=== PATIENT | female | born 1935 | race African-American/Black ===

== ENCOUNTER 2018-10-01 21:22 | Inpatient (IN) | payer MEDICARE, MEDICAID ==
[2018-10-01 22:02] LABS: % BASOPHILS 0.2 % (0.0-2.0); % LYMPHOCYTES 28.2 % (20.0-50.0); % NEUTROPHILS 61.6 % (40.0-80.0); EOSINOPHILE ABSOLUTE 0.4 Th/cmm (0.1-0.4); HEMATOCRIT 41.2 % (41.0-60); HEMOGLOBIN 13.2 gm/dL (12-16); LYMPHOCYTE ABSOLUTE 2.4 Th/cmm (1.5-3.0); MEAN CELL VOLUME 89.6 fl (81-100); MEAN CORPUSCULAR HEMOGLOBIN 28.8 pg (27.0-31.0); MEAN CORPUSCULAR HGB CONC 32.2 pg (28.0-36.0); MEAN PLATELET VOLUME 12.4 fl; MONOCYTE ABSOLUTE 0.4 Th/cmm (0.3-1.0); NEUTROPHILE ABSOLUTE 5.3 Th/cmm (1.8-8.0); PLATELET COUNT 141 Th/cmm (150-400); RED BLOOD COUNT 4.59 Mil/cmm (3.80-5.20); RED CELL DISTRIBUTION WIDTH 15.6 % (11.5-20.0); WHITE BLOOD COUNT 8.5 Th/cmm (4.8-10.8)
[2018-10-01 22:17] LABS: ALBUMIN 3.4 gm/dL (3.7-5.3); ALKALINE PHOSPHATASE 80 U/L (34-104); ANION GAP 12.8 (7.0-16.0); BILIRUBIN,TOTAL 0.4 mg/dL (0.3-1.0); BUN - UREA NITROGEN 75 mg/dL (7-25); CARBON DIOXIDE 24.9 mEq/L (21.0-31.0); CHLORIDE 125 mEq/L (98-107); CREATININE - SERUM 2.4 mg/dL (0.6-1.2); GLUCOSE 326 mg/dL (70-105); POTASSIUM SERUM 3.7 mEq/L (3.5-5.1); SGOT 50 U/L (13-39); SGPT/ALT 99 U/L (7-52); TOTAL PROTEIN,SERUM 6.7 gm/dL (6.0-8.3)
[2018-10-01 22:39] LABS: PROTHROMBIN TIME (TEST) 75.4 SECONDS (9.5-11.5)
[2018-10-01 22:40] LABS: SODIUM SERUM 159 mEq/L (136-145)
[2018-10-01 22:51] LABS: URINE SOURCE CATH
[2018-10-01] MEDS ORDERED: INSULIN HUMAN REGULAR 100 UNITS/ML UNIT SUBQ ONE (23:00)
[2018-10-01 23:02] LABS: URINE BILIRUBIN NEGATIVE (NEGATIVE); URINE BLOOD MODERATE (NEGATIVE); URINE CLARITY CLOUDY (CLEAR); URINE COLOR YELLOW; URINE GLUCOSE (UA) NEGATIVE (NEGATIVE); URINE KETONE NEGATIVE (NEGATIVE); URINE LEUKOCYTE ESTERASE LARGE (NEGATIVE); URINE MICROSCOPIC INDICATED? YES; URINE NITRATE POSITIVE (NEGATIVE); URINE PH 5.5 (4.6 - 8.0); URINE PROTEIN 100 mg/dL (NEGATIVE); URINE UROBILINOGEN 0.2 E.U./dL (0.2 - 1.0)
[2018-10-01] MEDS ORDERED: INSULIN HUMAN REGULAR 100 UNITS/ML UNIT ONE (23:03)
[2018-10-01 23:04] LABS: URINE BACTERIA MANY /hpf (NONE SEEN); URINE EPITHELIAL CELLS MODERATE /lpf (FEW); URINE WBC >100 /hpf (0-5)
[2018-10-01] MEDS ORDERED: cefTRIAXone 1 GM in Sodium Chloride 0.9% 50 ML IV ONE (23:04)
--- NOTE | 2018-10-01 23:56 | ED Physician Chart ---
ED Chief Complaint/HPI - Patient Information Date Seen:: 10/01/18 Time Seen:: 23:52 Chief Complaint:: generalized weakness History of Present Illness:: 83 yr old female with generalized weakness diabetes elevated coags ams Allergies:: Allergies Allergy/AdvReac Type Severity Reaction Status Date / Time No Known Allergies Allergy Verified 10/01/18 21:25 Vitals:: Vital Signs - 8 hr 10/01/18 10/01/18 10/01/18 21:25 22:45 23:40 Temp 97.9 F 98.4 F HR 95 97 96 RR 19 15 13 BP 91/40 116/57 132/74 O2 Sat % 99 98 98 ED Review of Systems - Review of Systems General/Constitutional: No fever Skin: No skin lesions Head: No headache Eyes: No loss of vision ENT: No earache Neck: No neck pain, No swelling Cardio Vascular: No chest pain Pulmonary: No SOB GI: No vomiting Endocrine: No polyuria Family Medical History - Family Member Daughter Living Status: Still Living ED Labs/Radiology/EKG Results - Lab Results Results: Laboratory Tests 10/01/18 10/01/18 10/01/18 21:50 21:50 21:50 WBC 8.5 RBC 4.59 Hgb 13.2 Hct 41.2 MCV 89.6 MCH 28.8 MCHC Differential 32.2 RDW 15.6 Plt Count 141 L MPV 12.4 Neutrophils % 61.6 Lymphocytes % 28.2 Monocytes % 5.0 Eosinophils % 5.0 Basophils % 0.2 PT 75.4 H* INR 8.00 H* PTT (Actin FS) 57.5 H Sodium 159 H* Potassium 3.7 Chloride 125 H Carbon Dioxide 24.9 Anion Gap 12.8 BUN 75 H Creatinine 2.4 H Est GFR ( Amer) TNP Est GFR (Non-Af Amer) TNP BUN/Creatinine Ratio 31.3 Glucose 326 H POC Glucose Calcium 9.0 Total Bilirubin 0.4 AST 50 H ALT 99 H Alkaline Phosphatase 80 Total Protein 6.7 Albumin 3.4 L Globulin 3.3 Albumin/Globulin Ratio 1.0 Urine Source Urine Color Urine Clarity Urine pH Ur Specific [place] Urine Protein Urine Glucose (UA) Urine Ketones Urine Blood Urine Nitrate Urine Bilirubin Urine Urobilinogen Ur Leukocyte Esterase Urine RBC Urine WBC Ur Epithelial Cells Urine Bacteria 10/01/18 10/01/18 22:40 23:49 WBC RBC Hgb Hct MCV MCH MCHC Differential RDW Plt Count MPV Neutrophils % Lymphocytes % Monocytes % Eosinophils % Basophils % PT INR PTT (Actin FS) Sodium Potassium Chloride Carbon Dioxide Anion Gap BUN Creatinine Est GFR ( Amer) Est GFR (Non-Af Amer) BUN/Creatinine Ratio Glucose POC Glucose 304 H Calcium Total Bilirubin AST ALT Alkaline Phosphatase Total Protein Albumin Globulin Albumin/Globulin Ratio Urine Source CATH Urine Color YELLOW Urine Clarity CLOUDY H Urine pH 5.5 Ur Specific [place] 1.020 Urine Protein 100 H Urine Glucose (UA) NEGATIVE Urine Ketones NEGATIVE Urine Blood MODERATE H Urine Nitrate POSITIVE H Urine Bilirubin NEGATIVE Urine Urobilinogen 0.2 Ur Leukocyte Esterase LARGE H Urine RBC 2-5 Urine WBC >100 H Ur Epithelial Cells MODERATE Urine Bacteria MANY H ED Septic Shock - . Is Septic Shock (SBP<90, OR Lactate>4 mmol\L) present?: No - <6hrs of presentation: Vital Signs: Vital Signs - 8 hr 10/01/18 10/01/18 10/01/18 21:25 22:45 23:40 Temp 97.9 F 98.4 F HR 95 97 96 RR 19 15 13 BP 91/40 116/57 132/74 O2 Sat % 99 98 98 Assessment of Lungs: Lung CTA bilateral Assessment of Heart: RRR EKG Interpretation: NSR Capillary refill evaluation: Capillary refill > 2 secs Skin Exam: Dry, Good Turgur, Poor Turgor, Pallor
[2018-10-02] MEDS: Dextrose 5% 1,000 ML IV SCH ×2 (00:42→15:42)
[2018-10-02 05:32] VITALS: BP 116/63
[2018-10-02] MEDS ORDERED: INSULIN HUMAN REGULAR 100 UNITS/ML UNIT SUBQ SCH (07:30)
--- NOTE | 2018-10-02 08:39 | Diagnostic Imaging Report ---
CHEST X-RAY: AP view INDICATION: pain COMPARISON: None FINDINGS: There is no focal consolidation or pleural effusions cardiomegaly is noted with atherosclerosis. Degenerative changes of the spine are noted. IMPRESSION: No focal consolidation identified. Cardiomegaly and atherosclerotic vascular disease.
[2018-10-02 08:43] LABS: % EOSINOPHILS 4.3 % (0.0-5.0); % LYMPHOCYTES 30.7 % (20.0-50.0); % MONOCYTES 11.8 % (2.0-10.0); % NEUTROPHILS 52.2 % (40.0-80.0); BASOPHILE ABSOLUTE 0.1 Th/cumm (0-0.2); EOSINOPHILE ABSOLUTE 0.5 Th/cmm (0.1-0.4); HEMATOCRIT 43.4 % (41.0-60); LYMPHOCYTE ABSOLUTE 3.5 Th/cmm (1.5-3.0); MEAN CELL VOLUME 91.7 fl (81-100); MEAN CORPUSCULAR HEMOGLOBIN 29.5 pg (27.0-31.0); MEAN CORPUSCULAR HGB CONC 32.2 pg (28.0-36.0); MEAN PLATELET VOLUME 12.2 fl; MONOCYTE ABSOLUTE 1.3 Th/cmm (0.3-1.0); NEUTROPHILE ABSOLUTE 5.9 Th/cmm (1.8-8.0); PLATELET COUNT 121 Th/cmm (150-400); RED BLOOD COUNT 4.73 Mil/cmm (3.80-5.20); RED CELL DISTRIBUTION WIDTH 15.9 % (11.5-20.0)
[2018-10-02 08:44] LABS: WHITE BLOOD COUNT 11.3 Th/cmm (4.8-10.8)
[2018-10-02] MEDS ORDERED: INSULIN LISPRO SLIDING SCALE 100 UNITS/ML UNIT SUBQ SCH (08:44)
--- NOTE | 2018-10-02 08:48 | Diagnostic Imaging Report ---
Head CT without intravenous contrast Indication: Altered level of consciousness Comparison: None Technique: Axial images were obtained from the vertex to the skull base without IV contrast. Coronal reconstructions were made. Total DLP: 791, [id number] FINDINGS: Images of the brain obtained without contrast demonstrate no evidence of an acute hemorrhage. There is diffuse atrophy. Diffuse white matter disease is noted. The ventricles and basal cisterns are patent. No mass effect or midline shift. No evidence of a skull fracture or focal soft tissue swelling. There is almost complete opacification of the left maxillary sinus with calcifications. There is also almost complete opacification right sphenoid sinus. Diffuse atherosclerosis is noted. IMPRESSION: No evidence of acute intracranial hemorrhage. Atrophy. Diffuse supratentorial white matter disease which is nonspecific and may be due to chronic microvessel ischemia.. Left maxillary and right sphenoid sinusitis, chronic please correlate clinically. Atherosclerotic vascular disease.
[2018-10-02 08:56] LABS: ALBUMIN 3.4 gm/dL (3.7-5.3); ALKALINE PHOSPHATASE 76 U/L (34-104); ANION GAP 14.1 (7.0-16.0); BILIRUBIN,TOTAL 0.5 mg/dL (0.3-1.0); BUN - UREA NITROGEN 67 mg/dL (7-25); CALCIUM SERUM 9.1 mg/dL (8.6-10.3); CARBON DIOXIDE 22.9 mEq/L (21.0-31.0); CHLORIDE 125 mEq/L (98-107); CREATININE - SERUM 2.1 mg/dL (0.6-1.2); SGOT 47 U/L (13-39); SGPT/ALT 92 U/L (7-52); TOTAL PROTEIN,SERUM 6.9 gm/dL (6.0-8.3)
[2018-10-02] MEDS ORDERED: Non-Formulary Item 1 EA (Multivitamin [Multivitamins] 1 CAP) PO SCH (09:00)
[2018-10-02] MEDS ORDERED: AMINO ACIDS PO SCH (09:00)
[2018-10-02] MEDS ORDERED: PROTEIN HYDROLYS PO SCH (09:00)
[2018-10-02 09:07] LABS: GLUCOSE 160 mg/dL (70-105); SODIUM SERUM 158 mEq/L (136-145)
--- NOTE | 2018-10-02 09:08 | History and Physical ---
History of Present Illness - HPI Chief Complaint: Weakness and confusion. HPI: This is a patient that I follow in an SNF, I received a call and nurse stated that patient has been lethargy, eating less than normal. with some confusion. Patient was send to ER for evaluation. During ER evaluation was found UTI, and INR of 8. Vital Signs: Last Vital Signs Temp 97.7 F 10/02/18 04:16 Pulse 95 10/02/18 04:16 Resp 18 10/02/18 04:16 BP 116/63 10/02/18 05:31 Pulse Ox 100 10/02/18 04:16 Past Medical History Cardiovascular: Report: CAD, HTN Pulmonary: Report: COPD CHILDREN'S AIDE: Report: CVA, Dementia GI: Report: No Pertinent Hx Psych: Report: No Pertinent Hx Musculoskeletal: Report: Muscle Atrophy, Weakness, Other (Funtional quadriplegic.) Rheumatologic: Report: No pertinent Hx Infectious Disease: Report: No Pertinent Hx Renal/: Report: Chronic Renal Insuff Endocrine: Report: Diabetes Dermatology: Report: Other (Decubit ulcer stage II) Family Medical History - Family Member Daughter History Unknown: Yes Ethnicity: Non- Living Status: Still Living Other Medical History: Patient unable to give information due to condition and confusion. Social History Smoke: No Alcohol: None Drugs: None Lives: Assisted Domestic Violence: Negative - Medications Home Medications: Home Medication Medication Instructions Recorded Type Albuterol Sulfate [Proair 1 puff IH QID PRN 10/01/18 History Respiclick] Albuterol/Ipratropium Neb [Duoneb 3 ml HHN Q6HR 10/01/18 History Neb] Amino Acids/Protein Hydrolys 30 ml PO BID 10/01/18 History [Proteinex Liquid] Ascorbic Acid [Vitamin C] 500 mg PO DAILY 10/01/18 History Aspirin 81 mg PO DAILY 10/01/18 History Atorvastatin Calcium [Lipitor] 20 mg PO HS 10/01/18 History Cyanocobalamin [Vitamin B12] 1,000 mcg PO DAILY 10/01/18 History Docusate Sodium [Dulcolax Stool 100 mg PO BID 10/01/18 History Softener] Ferrous Sulfate [Feosol*] 1 tab PO BID 10/01/18 History Furosemide [Lasix] 20 mg PO DAILY 10/01/18 History Insulin Glargine [Lantus Insulin] 5 units SUBQ QAM 10/01/18 History Insulin Human Regular [NovoLIN R] See Protocol SUBQ ACHS 10/01/18 History Losartan Potassium 100 mg PO DAILY 10/01/18 History Memantine [Namenda] 5 mg PO DAILY 10/01/18 History Multivitamin [Multivitamins] 1 cap PO DAILY 10/01/18 History Warfarin Sodium [Coumadin*] 5 mg PO DAILY 10/01/18 History Warfarin Sodium [Coumadin*] 7 mg PO DAILY 10/01/18 History - Allergies Allergies/Adverse Reactions: Allergies Allergy/AdvReac Type Severity Reaction Status Date / Time No Known Allergies Allergy Verified 10/01/18 21:25 Review of Systems - Review of Systems Constitutional: Report: Weakness Eyes: Report: No Significant ENT: Report: No Significant Respiratory: Report: No Significant Cardiovascular: Report: No Significant Gastrointestinal: Report: No Significant Genitourinary: Report: No Significant Musculoskeletal: Report: No Significant Skin: Report: No Significant Neurological: Report: No Significant Physical Exam - Physical Exam HEENT: Report: Ears Nose Throat within normal limits Neck: Report: Within normal limits Cardiovascular Systems: Report: Regular, Rate and Rhythm Respiratory: Report: Breath Sounds are within normal limits Abdomen: Report: Non-tender to palpation Back: Report: Inspection of back is within normal limits. Extremities: Report: Non-tender to palpation., Other (Non ambulatory) Skin: Report: A wound was noted, Other (Decubit ulcer stage II) Neuro/Psych: Report: Disoriented to name time or place, Depressed affect - Lab Results All Lab Results last 24 hours: Laboratory Results - last 24 hr 10/01/18 10/01/18 10/01/18 21:50 21:50 21:50 WBC 8.5 RBC 4.59 Hgb 13.2 Hct 41.2 MCV 89.6 MCH 28.8 MCHC Differential 32.2 RDW 15.6 Plt Count 141 L MPV 12.4 Neutrophils % 61.6 Lymphocytes % 28.2 Monocytes % 5.0 Eosinophils % 5.0 Basophils % 0.2 PT 75.4 H* INR 8.00 H* PTT (Actin FS) 57.5 H Sodium 159 H* Potassium 3.7 Chloride 125 H Carbon Dioxide 24.9 Anion Gap 12.8 BUN 75 H Creatinine 2.4 H Est GFR ( Amer) TNP Est GFR (Non-Af Amer) TNP BUN/Creatinine Ratio 31.3 Glucose 326 H POC Glucose Calcium 9.0 Total Bilirubin 0.4 AST 50 H ALT 99 H Alkaline Phosphatase 80 Total Protein 6.7 Albumin 3.4 L Globulin 3.3 Albumin/Globulin Ratio 1.0 Urine Source Urine Color Urine Clarity Urine pH Ur Specific [place] Urine Protein Urine Glucose (UA) Urine Ketones Urine Blood Urine Nitrate Urine Bilirubin Urine Urobilinogen Ur Leukocyte Esterase Urine RBC Urine WBC Ur Epithelial Cells Urine Bacteria 10/01/18 10/01/18 10/02/18 22:40 23:49 06:21 WBC RBC Hgb Hct MCV MCH MCHC Differential RDW Plt Count MPV Neutrophils % Lymphocytes % Monocytes % Eosinophils % Basophils % PT INR PTT (Actin FS) Sodium Potassium Chloride Carbon Dioxide Anion Gap BUN Creatinine Est GFR ( Amer) Est GFR (Non-Af Amer) BUN/Creatinine Ratio Glucose POC Glucose 304 H 184 H Calcium Total Bilirubin AST ALT Alkaline Phosphatase Total Protein Albumin Globulin Albumin/Globulin Ratio Urine Source CATH Urine Color YELLOW Urine Clarity CLOUDY H Urine pH 5.5 Ur Specific [place] 1.020 Urine Protein 100 H Urine Glucose (UA) NEGATIVE Urine Ketones NEGATIVE Urine Blood MODERATE H Urine Nitrate POSITIVE H Urine Bilirubin NEGATIVE Urine Urobilinogen 0.2 Ur Leukocyte Esterase LARGE H Urine RBC 2-5 Urine WBC >100 H Ur Epithelial Cells MODERATE Urine Bacteria MANY H 10/02/18 08:30 WBC 11.3 H D RBC 4.73 Hgb 14.0 Hct 43.4 MCV 91.7 MCH 29.5 MCHC Differential 32.2 RDW 15.9 Plt Count 121 L MPV 12.2 Neutrophils % 52.2 Lymphocytes % 30.7 Monocytes % 11.8 H Eosinophils % 4.3 Basophils % 1.0 PT INR PTT (Actin FS) Sodium Potassium Chloride Carbon Dioxide Anion Gap BUN Creatinine Est GFR ( Amer) Est GFR (Non-Af Amer) BUN/Creatinine Ratio Glucose POC Glucose Calcium Total Bilirubin AST ALT Alkaline Phosphatase Total Protein Albumin Globulin Albumin/Globulin Ratio Urine Source Urine Color Urine Clarity Urine pH Ur Specific [place] Urine Protein Urine Glucose (UA) Urine Ketones Urine Blood Urine Nitrate Urine Bilirubin Urine Urobilinogen Ur Leukocyte Esterase Urine RBC Urine WBC Ur Epithelial Cells Urine Bacteria - Assessment Assessment: Patient is awake, alert, calm, confused, not oriented, not following verbal commands. DX: UTI, Hypernatremia, Elevated INR, DM, HTN, S/P CVA, Functional quadriplegia, Dementia. - Plan Plan: Patient is in IV D5, IV AB, continue with SNF meds, Insulin, Wound care. will continue to monitor.
[2018-10-02] MEDS ORDERED: Dextrose 50% 50 mL Abboject IVP PRN (09:11)
[2018-10-02] MEDS ORDERED: GLUCAGON HCl 1 MG KIT IM PRN (09:11)
[2018-10-02] MEDS: Insulin Glargine 100 units/ml 10ml Vial SUBQ SCH (09:31)
[2018-10-02] MEDS: Ferrous Sulfate 325 MG TAB PO SCH ×2 (09:35→18:00)
[2018-10-02] MEDS: INSULIN LISPRO SLIDING SCALE 100 UNITS/ML UNIT SUBQ SCH ×2 (12:19→17:17)
[2018-10-02] MEDS: Albuterol/Ipratropium Neb 3 ML AERS HHN SCH ×2 (14:24→19:23)
[2018-10-02 14:49] LABS: PROTHROMBIN TIME (TEST) 76.3 SECONDS (9.5-11.5)
[2018-10-02 14:50] LABS: INR 8.11 (0.5-1.4)
[2018-10-02] MEDS: Atorvastatin Calcium 10 MG TAB PO SCH (20:23)
[2018-10-02] MEDS: cefTRIAXone 1 GM in Sodium Chloride 0.9% 50 ML IV SCH (20:25)
[2018-10-02] MEDS ORDERED: Non-Formulary Item 1 EA (Atorvastatin Calcium [Lipitor] 20 MG) PO SCH (21:00)
[2018-10-02] MEDS ORDERED: INSULIN LISPRO 100 UNIT/ML VIAL SUBQ ONE (21:45)
[2018-10-03] MEDS: INSULIN LISPRO SLIDING SCALE 100 UNITS/ML UNIT SUBQ SCH ×4 (00:24→18:53)
[2018-10-03] MEDS: Albuterol/Ipratropium Neb 3 ML AERS HHN SCH ×4 (01:09→19:09)
[2018-10-03 06:36] LABS: ALBUMIN 3.3 gm/dL (3.7-5.3); ALKALINE PHOSPHATASE 68 U/L (34-104); ANION GAP 14.8 (7.0-16.0); BILIRUBIN,TOTAL 0.6 mg/dL (0.3-1.0); BUN - UREA NITROGEN 50 mg/dL (7-25); CALCIUM SERUM 8.6 mg/dL (8.6-10.3); CARBON DIOXIDE 21.8 mEq/L (21.0-31.0); CHLORIDE 120 mEq/L (98-107); CREATININE - SERUM 1.7 mg/dL (0.6-1.2); GLUCOSE 118 mg/dL (70-105); POTASSIUM SERUM 3.6 mEq/L (3.5-5.1); SGOT 33 U/L (13-39); SGPT/ALT 74 U/L (7-52); SODIUM SERUM 153 mEq/L (136-145); TOTAL PROTEIN,SERUM 6.5 gm/dL (6.0-8.3)
[2018-10-03 07:22] LABS: % BASOPHILS 0.9 % (0.0-2.0); % EOSINOPHILS 3.5 % (0.0-5.0); % LYMPHOCYTES 29.2 % (20.0-50.0); % MONOCYTES 9.3 % (2.0-10.0); % NEUTROPHILS 57.1 % (40.0-80.0); BASOPHILE ABSOLUTE 0.1 Th/cumm (0-0.2); EOSINOPHILE ABSOLUTE 0.4 Th/cmm (0.1-0.4); HEMATOCRIT 39.9 % (41.0-60); HEMOGLOBIN 12.8 gm/dL (12-16); LYMPHOCYTE ABSOLUTE 2.9 Th/cmm (1.5-3.0); MEAN CELL VOLUME 90.1 fl (81-100); MEAN CORPUSCULAR HEMOGLOBIN 28.9 pg (27.0-31.0); MEAN PLATELET VOLUME 10.7 fl; MONOCYTE ABSOLUTE 0.9 Th/cmm (0.3-1.0); NEUTROPHILE ABSOLUTE 5.8 Th/cmm (1.8-8.0); PLATELET COUNT 91 Th/cmm (150-400); RED BLOOD COUNT 4.42 Mil/cmm (3.80-5.20); RED CELL DISTRIBUTION WIDTH 15.3 % (11.5-20.0); WHITE BLOOD COUNT 10.1 Th/cmm (4.8-10.8)
[2018-10-03] MEDS: Multivitamin Tab PO SCH (08:56)
[2018-10-03] MEDS: Ferrous Sulfate 325 MG TAB PO SCH ×2 (08:56→18:52)
[2018-10-03] MEDS: Insulin Glargine 100 units/ml 10ml Vial SUBQ SCH (09:00)
--- NOTE | 2018-10-03 09:10 | General Progress Note ---
Subjective - Review of Systems Service Date: 10/03/18 Subjective: Patient non verbal Objective - Results Result Diagrams: 10/04/18 06:35 10/04/18 06:35 Recent Labs: Laboratory Last Values WBC 10.1 Th/cmm (4.8-10.8) 10/03/18 05:51 RBC 4.42 Mil/cmm (3.80-5.20) 10/03/18 05:51 Hgb 12.8 gm/dL (12-16) 10/03/18 05:51 Hct 39.9 % (41.0-60) L 10/03/18 05:51 MCV 90.1 fl (81-100) 10/03/18 05:51 MCH 28.9 pg (27.0-31.0) 10/03/18 05:51 MCHC Differential 32.0 pg (28.0-36.0) 10/03/18 05:51 RDW 15.3 % (11.5-20.0) 10/03/18 05:51 Plt Count 91 Th/cmm (150-400) L 10/03/18 05:51 MPV 10.7 fl 10/03/18 05:51 Neutrophils % 57.1 % (40.0-80.0) 10/03/18 05:51 Lymphocytes % 29.2 % (20.0-50.0) 10/03/18 05:51 Monocytes % 9.3 % (2.0-10.0) 10/03/18 05:51 Eosinophils % 3.5 % (0.0-5.0) 10/03/18 05:51 Basophils % 0.9 % (0.0-2.0) 10/03/18 05:51 PT 76.3 SECONDS (9.5-11.5) H* 10/02/18 14:08 INR 8.11 (0.5-1.4) H* 10/02/18 14:08 PTT (Actin FS) 57.5 SECONDS (26.0-38.0) H 10/01/18 21:50 Sodium 153 mEq/L (136-145) H 10/03/18 05:51 Potassium 3.6 mEq/L (3.5-5.1) 10/03/18 05:51 Chloride 120 mEq/L (98-107) H 10/03/18 05:51 Carbon Dioxide 21.8 mEq/L (21.0-31.0) 10/03/18 05:51 Anion Gap 14.8 (7.0-16.0) 10/03/18 05:51 BUN 50 mg/dL (7-25) H 10/03/18 05:51 Creatinine 1.7 mg/dL (0.6-1.2) H 10/03/18 05:51 Est GFR ( Amer) TNP 10/03/18 05:51 Est GFR (Non-Af Amer) TNP 10/03/18 05:51 BUN/Creatinine Ratio 29.4 10/03/18 05:51 Glucose 118 mg/dL (70-105) H 10/03/18 05:51 POC Glucose 91 MG/DL (70 - 105) 10/03/18 05:22 Calcium 8.6 mg/dL (8.6-10.3) 10/03/18 05:51 Total Bilirubin 0.6 mg/dL (0.3-1.0) 10/03/18 05:51 AST 33 U/L (13-39) 10/03/18 05:51 ALT 74 U/L (7-52) H 10/03/18 05:51 Alkaline Phosphatase 68 U/L (34-104) 10/03/18 05:51 Total Protein 6.5 gm/dL (6.0-8.3) 10/03/18 05:51 Albumin 3.3 gm/dL (3.7-5.3) L 10/03/18 05:51 Globulin 3.2 gm/dL 10/03/18 05:51 Albumin/Globulin Ratio 1.0 (1.0-1.8) 10/03/18 05:51 TSH 4.83 uIU/ml (0.34-5.60) 10/03/18 05:51 Urine Source CATH 10/01/18 22:40 Urine Color YELLOW 10/01/18 22:40 Urine Clarity CLOUDY (CLEAR) H 10/01/18 22:40 Urine pH 5.5 (4.6 - 8.0) 10/01/18 22:40 Ur Specific [place] 1.020 (1.005-1.030) 10/01/18 22:40 Urine Protein 100 mg/dL (NEGATIVE) H 10/01/18 22:40 Urine Glucose (UA) NEGATIVE mg/dL (NEGATIVE) 10/01/18 22:40 Urine Ketones NEGATIVE mg/dL (NEGATIVE) 10/01/18 22:40 Urine Blood MODERATE (NEGATIVE) H 10/01/18 22:40 Urine Nitrate POSITIVE (NEGATIVE) H 10/01/18 22:40 Urine Bilirubin NEGATIVE (NEGATIVE) 10/01/18 22:40 Urine Urobilinogen 0.2 E.U./dL (0.2 - 1.0) 10/01/18 22:40 Ur Leukocyte Esterase LARGE (NEGATIVE) H 10/01/18 22:40 Urine RBC 2-5 /hpf (0-5) 10/01/18 22:40 Urine WBC >100 /hpf (0-5) H 10/01/18 22:40 Ur Epithelial Cells MODERATE /lpf (FEW) 10/01/18 22:40 Urine Bacteria MANY /hpf (NONE SEEN) H 10/01/18 22:40 - Physical Exam Vitals and I&O: Vital Signs Temp 98.1 F 10/03/18 08:00 Pulse 81 10/03/18 08:00 Resp 18 10/03/18 08:00 BP 117/68 10/03/18 08:00 Pulse Ox 100 10/03/18 08:00 Intake & Output 10/02/18 10/03/18 10/03/18 18:59 06:59 18:59 Intake Total 1000 60 Output Total 2 Balance 1000 58 Weight (lbs) 75.296 kg Intake: Intake, IV Amount 1000 Dextrose 5% 1,000 ml @ 70 1000 mls/hr IV .[id number] [facility] Rx#:[id number] Oral 60 Output: Urine 2 Other: # Bowel Movements 0 Stool Characteristics Soft Soft Weight Source Bedscale Active Medications: Current Medications Albuterol/Ipratropium (Duoneb Neb) 3 ml HHN Q6HR [facility] Stop: 12/01/18 11:59 Last Admin: 10/03/18 07:43 Dose: 3 ml Ascorbic Acid (Vitamin C) 500 mg PO DAILY [facility] Stop: 12/01/18 08:59 Last Admin: 10/03/18 08:56 Dose: 500 mg Atorvastatin Calcium (Lipitor) 20 mg PO [facility] Stop: 12/01/18 20:59 Last Admin: 10/02/18 20:23 Dose: 20 mg Cyanocobalamin (Vitamin B12) 1,000 mcg PO DAILY [facility] Stop: 12/01/18 08:59 Last Admin: 10/03/18 08:56 Dose: 1,000 mcg Dextrose (D50w) 50 ml IVP PRN PRN PRN Reason: Blood Glucose less than 70 Stop: 12/01/18 09:10 Dextrose (Glutose 40%) 18.75 gm PO PRN PRN PRN Reason: Blood Glucose less than 70 Stop: 12/01/18 09:10 Docusate Sodium (Colace) 100 mg PO BID [facility] Stop: 12/01/18 08:59 Last Admin: 10/03/18 08:56 Dose: 100 mg Ferrous Sulfate (Iron) 325 mg PO BID [facility] Stop: 12/01/18 08:59 Last Admin: 10/03/18 08:56 Dose: 325 mg Glucagon (Glucagen) 1 mg IM PRN PRN PRN Reason: Blood Glucose less than 70 Stop: 12/01/18 09:10 Ceftriaxone Sodium 1 gm/ (Sodium Chloride) 50 mls @ 100 mls/hr IV Q24H [facility] Stop: 12/01/18 20:59 Last Admin: 10/02/18 20:25 Dose: 100 mls/hr Dextrose (D5w) 1,000 mls @ 70 mls/hr IV .[id number] [facility] Stop: 11/30/18 23:58 Last Admin: 10/02/18 15:42 Dose: 70 mls/hr Insulin Glargine (Lantus Insulin) 5 units SUBQ QAM [facility] Stop: 12/01/18 08:59 Last Admin: 10/03/18 09:00 Dose: 5 units Insulin Human Lispro (Humalog Insulin Sliding Scale) 0 units SUBQ Q6HR [facility]; Protocol Stop: 12/01/18 11:59 Last Admin: 10/03/18 06:25 Dose: Not Given Memantine (Namenda) 5 mg PO DAILY [facility] Stop: 12/01/18 08:59 Last Admin: 10/03/18 08:56 Dose: 5 mg Multivitamins/Vitamin C (Theragran) 1 tab PO DAILY [facility] Stop: 12/02/18 08:59 Last Admin: 10/03/18 08:56 Dose: 1 tab General: Alert, Other (Non verbal) HEENT: Atraumatic Neck: Supple Cardiovascular: Regular rate Lungs: Clear to auscultation Abdomen: Bowel sounds Extremities: Other (No edema) Neurological: Other (Non ambulatory) Skin: Other (Sacral decubitus ulcer stage II) Psych/Mental Status: Other (Confused not oriented) Assessment/Plan - Assessment Assessment: Patient is awake, alert, calm, confused, not oriented, not following verbal commands. WBC normal, Na improving, Creatinine improving. DX: UTI, Hypernatremia , Elevated INR, Acute over Chronic renal failure, DM, HTN, S/P CVA, Functional quadriplegia, Dementia. - Plan Plan: Patient is in IV D5, IV AB, continue with SNF meds, Insulin, Wound care. will continue to monitor. Nutritional Asmnt/Malnutr-PDOC - Dietary Evaluation Malnutrition Findings (Please click <Entered> for more info): Nutritional Asmnt/Malnutrition Start: 10/02/18 17: 19 Text: Status: Complete Freq: Protocol: Document 10/02/18 17:19 [id number] (Rec: 10/02/18 17:38 SHAYLA [id number]) Nutritional Asmnt/Malnutrition Patient General Information Nutritional Screening High Risk Consult Diagnosis UTI, altered metnal status, hypernatremia, coumadin Pertinent Medical Hx/Surgical Hx DM, CAD, HTN, dementia, muscle atrophy, weakness, funtional quadriplegic, chronic renal insuff, decubits ulcer stage 2 Subjective Information Pt seen sleeping in bed at time of visit, lunch tray not eaten on table. consult received for DM, wound. Current Diet Order/ Nutrition Support regular Pertinent Medications vit C, lipitor, Vit B12, colace, iron, lantus, humalog, theragran Pertinent Labs 10/02 Na 158, Cl 125, BUN 67, Cr 2.1, glucose 160, POC 136-184 Nutritional Hx/Data Height 1.55 m Height (Calculated Centimeters) 154.9 Current Weight (lbs) 75.296 kg Weight (Calculated Kilograms) 75.3 Weight (Calculated Grams) 41595.3 [place] Body Weight 105 Body Mass Index (BMI) 31.4 Weight Status Obese GI Symptoms GI Symptoms None Last BM 10/02 Difficult in: None Skin Integrity/Comment: redness, wound. angela 15 Estimated Nutritional Goals BEE in Kcals: Adj wt of IBW Calories/Kcals/Kg 25-30 Kcals Calculated 5318-8172 Protein: Adj wt of IBW Protein g/k-1.2 Protein Calculated 55-66 Fluid: ml 1375-1650ml (1ml/kcal) Nutritional Problem 1. Problem Problem altered nutrition related labs Etiology hyperglycemia Signs/Symptoms: glucose 160-326, POC 136-184 Malnutrition Alert Is there a minimum of two criteria No selected? Query Text:Check all the applicable criteria. A minimum of two criteria are recommended for diagnosis of either severe or non-severe malnutrition. Malnutrition Related to Morbid Obesity Malnutrition related to morbid obesity No Intervention/Recommendation Comments 1. Recommend [facility] [place] diet for glycemic control. Nurse [place] notified. Consider to limit protein intake if PO intake > 75%. 2. Monitor PO intake, wt, labs and skin integrity 3. F/U as hgih risk in 2-3 days Expected Outcomes/Goals Expected Outcomes/Goals 1. PO intake to meet at least 75% of nutritional needs. 2. Wt stability, skin to remain intact, labs to approach WNL.
[2018-10-03 10:59] LABS: PROTHROMBIN TIME (TEST) 54.2 SECONDS (9.5-11.5)
[2018-10-03 11:00] LABS: INR 5.66 (0.5-1.4)
[2018-10-03] MEDS ORDERED: Probiotic Screen MC PRN (16:34)
[2018-10-03] MEDS: Atorvastatin Calcium 10 MG TAB PO SCH (21:35)
[2018-10-03] MEDS: cefTRIAXone 1 GM in Sodium Chloride 0.9% 50 ML IV SCH (22:31)
[2018-10-04] MEDS: Albuterol/Ipratropium Neb 3 ML AERS HHN SCH ×5 (00:11→19:07)
[2018-10-04] MEDS: INSULIN LISPRO SLIDING SCALE 100 UNITS/ML UNIT SUBQ SCH ×4 (01:02→17:05)
[2018-10-04 06:53] LABS: % BASOPHILS 0.5 % (0.0-2.0); % EOSINOPHILS 5.2 % (0.0-5.0); % LYMPHOCYTES 27.4 % (20.0-50.0); % MONOCYTES 7.4 % (2.0-10.0); % NEUTROPHILS 59.5 % (40.0-80.0); EOSINOPHILE ABSOLUTE 0.5 Th/cmm (0.1-0.4); HEMATOCRIT 37.4 % (41.0-60); HEMOGLOBIN 12.1 gm/dL (12-16); LYMPHOCYTE ABSOLUTE 2.5 Th/cmm (1.5-3.0); MEAN CELL VOLUME 90.7 fl (81-100); MEAN CORPUSCULAR HEMOGLOBIN 29.4 pg (27.0-31.0); MEAN CORPUSCULAR HGB CONC 32.5 pg (28.0-36.0); MEAN PLATELET VOLUME 10.1 fl; MONOCYTE ABSOLUTE 0.7 Th/cmm (0.3-1.0); NEUTROPHILE ABSOLUTE 5.5 Th/cmm (1.8-8.0); PLATELET COUNT 118 Th/cmm (150-400); RED BLOOD COUNT 4.12 Mil/cmm (3.80-5.20); RED CELL DISTRIBUTION WIDTH 15.1 % (11.5-20.0); WHITE BLOOD COUNT 9.2 Th/cmm (4.8-10.8)
[2018-10-04 07:05] LABS: INR 2.57 (0.5-1.4); PROTHROMBIN TIME (TEST) 25.6 SECONDS (9.5-11.5)
[2018-10-04 07:09] LABS: ALB/GLOB RATIO 1.1 (1.0-1.8); ALBUMIN 3.3 gm/dL (3.7-5.3); ALKALINE PHOSPHATASE 65 U/L (34-104); ANION GAP 10.2 (7.0-16.0); BILIRUBIN,TOTAL 0.7 mg/dL (0.3-1.0); BUN - UREA NITROGEN 35 mg/dL (7-25); CALCIUM SERUM 8.5 mg/dL (8.6-10.3); CHLORIDE 111 mEq/L (98-107); CREATININE - SERUM 1.6 mg/dL (0.6-1.2); GLUCOSE 123 mg/dL (70-105); POTASSIUM SERUM 3.2 mEq/L (3.5-5.1); SGOT 18 U/L (13-39); SGPT/ALT 53 U/L (7-52); SODIUM SERUM 145 mEq/L (136-145); TOTAL PROTEIN,SERUM 6.3 gm/dL (6.0-8.3)
[2018-10-04] MEDS: Lactobacillus Rhamnosus GG 15 Billion CFU CAP.SPRINK PO SCH (09:35)
[2018-10-04] MEDS: Ferrous Sulfate 325 MG TAB PO SCH ×2 (09:35→17:06)
[2018-10-04] MEDS: Multivitamin Tab PO SCH (09:35)
[2018-10-04] MEDS: Insulin Glargine 100 units/ml 10ml Vial SUBQ SCH (09:36)
--- NOTE | 2018-10-04 09:41 | General Progress Note ---
Subjective - Review of Systems Service Date: 10/04/18 Subjective: Patient non verbal Objective - Results Result Diagrams: 10/04/18 06:35 10/04/18 06:35 Recent Labs: Laboratory Last Values WBC 9.2 Th/cmm (4.8-10.8) 10/04/18 06:35 RBC 4.12 Mil/cmm (3.80-5.20) 10/04/18 06:35 Hgb 12.1 gm/dL (12-16) 10/04/18 06:35 Hct 37.4 % (41.0-60) L 10/04/18 06:35 MCV 90.7 fl (81-100) 10/04/18 06:35 MCH 29.4 pg (27.0-31.0) 10/04/18 06:35 MCHC Differential 32.5 pg (28.0-36.0) 10/04/18 06:35 RDW 15.1 % (11.5-20.0) 10/04/18 06:35 Plt Count 118 Th/cmm (150-400) L 10/04/18 06:35 MPV 10.1 fl 10/04/18 06:35 Neutrophils % 59.5 % (40.0-80.0) 10/04/18 06:35 Lymphocytes % 27.4 % (20.0-50.0) 10/04/18 06:35 Monocytes % 7.4 % (2.0-10.0) 10/04/18 06:35 Eosinophils % 5.2 % (0.0-5.0) H 10/04/18 06:35 Basophils % 0.5 % (0.0-2.0) 10/04/18 06:35 PT 25.6 SECONDS (9.5-11.5) H 10/04/18 06:35 INR 2.57 (0.5-1.4) H 10/04/18 06:35 PTT (Actin FS) 57.5 SECONDS (26.0-38.0) H 10/01/18 21:50 Sodium 145 mEq/L (136-145) 10/04/18 06:35 Potassium 3.2 mEq/L (3.5-5.1) L 10/04/18 06:35 Chloride 111 mEq/L (98-107) H 10/04/18 06:35 Carbon Dioxide 27.0 mEq/L (21.0-31.0) 10/04/18 06:35 Anion Gap 10.2 (7.0-16.0) 10/04/18 06:35 BUN 35 mg/dL (7-25) H 10/04/18 06:35 Creatinine 1.6 mg/dL (0.6-1.2) H 10/04/18 06:35 Est GFR ( Amer) TNP 10/04/18 06:35 Est GFR (Non-Af Amer) TNP 10/04/18 06:35 BUN/Creatinine Ratio 21.9 10/04/18 06:35 Glucose 123 mg/dL (70-105) H 10/04/18 06:35 POC Glucose 123 MG/DL (70 - 105) H 10/04/18 05:35 Calcium 8.5 mg/dL (8.6-10.3) L 10/04/18 06:35 Total Bilirubin 0.7 mg/dL (0.3-1.0) 10/04/18 06:35 AST 18 U/L (13-39) 10/04/18 06:35 ALT 53 U/L (7-52) H 10/04/18 06:35 Alkaline Phosphatase 65 U/L (34-104) 10/04/18 06:35 Total Protein 6.3 gm/dL (6.0-8.3) 10/04/18 06:35 Albumin 3.3 gm/dL (3.7-5.3) L 10/04/18 06:35 Globulin 3.0 gm/dL 10/04/18 06:35 Albumin/Globulin Ratio 1.1 (1.0-1.8) 10/04/18 06:35 TSH 4.83 uIU/ml (0.34-5.60) 10/03/18 05:51 Urine Source CATH 10/01/18 22:40 Urine Color YELLOW 10/01/18 22:40 Urine Clarity CLOUDY (CLEAR) H 10/01/18 22:40 Urine pH 5.5 (4.6 - 8.0) 10/01/18 22:40 Ur Specific [place] 1.020 (1.005-1.030) 10/01/18 22:40 Urine Protein 100 mg/dL (NEGATIVE) H 10/01/18 22:40 Urine Glucose (UA) NEGATIVE mg/dL (NEGATIVE) 10/01/18 22:40 Urine Ketones NEGATIVE mg/dL (NEGATIVE) 10/01/18 22:40 Urine Blood MODERATE (NEGATIVE) H 10/01/18 22:40 Urine Nitrate POSITIVE (NEGATIVE) H 10/01/18 22:40 Urine Bilirubin NEGATIVE (NEGATIVE) 10/01/18 22:40 Urine Urobilinogen 0.2 E.U./dL (0.2 - 1.0) 10/01/18 22:40 Ur Leukocyte Esterase LARGE (NEGATIVE) H 10/01/18 22:40 Urine RBC 2-5 /hpf (0-5) 10/01/18 22:40 Urine WBC >100 /hpf (0-5) H 10/01/18 22:40 Ur Epithelial Cells MODERATE /lpf (FEW) 10/01/18 22:40 Urine Bacteria MANY /hpf (NONE SEEN) H 10/01/18 22:40 - Physical Exam Vitals and I&O: Vital Signs Temp 97.0 F 10/04/18 08:00 Pulse 77 10/04/18 08:00 Resp 18 10/04/18 08:00 BP 118/53 10/04/18 08:00 Pulse Ox 97 10/04/18 08:00 Intake & Output 10/03/18 10/04/18 10/04/18 18:59 06:59 18:59 Intake Total 40 60 Balance 40 60 Weight (lbs) 75.296 kg 75.296 kg Intake: Oral 40 60 Other: # Voids 2 2 # Bowel Movements 1 1 Stool Characteristics Soft Soft Weight Source Bedscale Bedscale Active Medications: Current Medications Albuterol/Ipratropium (Duoneb Neb) 3 ml HHN Q6HR [facility] Stop: 12/01/18 11:59 Last Admin: 10/04/18 06:51 Dose: 3 ml Ascorbic Acid (Vitamin C) 500 mg PO DAILY [facility] Stop: 12/01/18 08:59 Last Admin: 10/04/18 09:35 Dose: 500 mg Atorvastatin Calcium (Lipitor) 20 mg PO HS [facility] Stop: 12/01/18 20:59 Last Admin: 10/03/18 21:35 Dose: 20 mg Cyanocobalamin (Vitamin B12) 1,000 mcg PO DAILY [facility] Stop: 12/01/18 08:59 Last Admin: 10/04/18 09:35 Dose: 1,000 mcg Dextrose (D50w) 50 ml IVP PRN PRN PRN Reason: Blood Glucose less than 70 Stop: 12/01/18 09:10 Dextrose (Glutose 40%) 18.75 gm PO PRN PRN PRN Reason: Blood Glucose less than 70 Stop: 12/01/18 09:10 Docusate Sodium (Colace) 100 mg PO BID [facility] Stop: 12/01/18 08:59 Last Admin: 10/04/18 09:36 Dose: 100 mg Ferrous Sulfate (Iron) 325 mg PO BID [facility] Stop: 12/01/18 08:59 Last Admin: 10/04/18 09:35 Dose: 325 mg Glucagon (Glucagen) 1 mg IM PRN PRN PRN Reason: Blood Glucose less than 70 Stop: 12/01/18 09:10 Ceftriaxone Sodium 1 gm/ (Sodium Chloride) 50 mls @ 100 mls/hr IV Q24H [facility] Stop: 12/01/18 20:59 Last Admin: 10/03/18 22:31 Dose: 100 mls/hr Dextrose (D5w) 1,000 mls @ 70 mls/hr IV .[id number] [facility] Stop: 11/30/18 23:58 Last Admin: 10/02/18 15:42 Dose: 70 mls/hr Insulin Glargine (Lantus Insulin) 5 units SUBQ QAM [facility] Stop: 12/01/18 08:59 Last Admin: 10/04/18 09:36 Dose: 5 units Insulin Human Lispro (Humalog Insulin Sliding Scale) 0 units SUBQ Q6HR [facility]; Protocol Stop: 12/01/18 11:59 Last Admin: 10/04/18 05:44 Dose: Not Given Lactobacillus Rhamnosus (Culturelle 15b) 1 each PO DAILY [facility] Stop: 12/03/18 08:59 Last Admin: 10/04/18 09:35 Dose: 1 each Memantine (Namenda) 5 mg PO DAILY [facility] Stop: 12/01/18 08:59 Last Admin: 10/04/18 09:36 Dose: 5 mg Miscellaneous (Probiotic Screen) 1 ea MC PRN PRN PRN Reason: PROTOCOL Stop: 12/02/18 16:33 Multivitamins/Vitamin C (Theragran) 1 tab PO DAILY [facility] Stop: 12/02/18 08:59 Last Admin: 10/04/18 09:35 Dose: 1 tab Potassium Chloride (Klor-Con) 20 meq PO DAILY [facility] Stop: 12/03/18 09:44 Warfarin Sodium (Coumadin) 3 mg PO DAILY [facility]; Protocol Stop: 12/03/18 09:44 Wound Care/Dressing Products (Therahoney) 1 appl TP DAILY [facility] Stop: 12/03/18 08:59 General: Alert, Other (Non verbal) HEENT: Atraumatic Neck: Supple Cardiovascular: Regular rate Lungs: Clear to auscultation Abdomen: Bowel sounds Extremities: Other (No edema) Neurological: Other (Non ambulatory) Skin: Other (Sacral decubitus ulcer stage II) Psych/Mental Status: Other (Confused not oriented) Assessment/Plan - Assessment Assessment: Patient is awake, alert, calm, confused, not oriented, not following verbal commands. WBC normal, Na normal, Creatinine improving. INR in target. DX: UTI, Hypernatremia, Elevated INR, Acute over Chronic renal failure, DM, HTN, S/P CVA , Functional quadriplegia, Dementia. - Plan Plan: Patient is in IV D5, IV AB, continue with SNF meds, Insulin, Wound care. will continue to monitor. Nutritional Asmnt/Malnutr-PDOC - Dietary Evaluation Malnutrition Findings (Please click <Entered> for more info): Nutritional Asmnt/Malnutrition Start: 10/02/18 17: 19 Text: Status: Complete Freq: Protocol: Document 10/02/18 17:19 LCHENG (Rec: 10/02/18 17:38 [email or web address] [id number]) Nutritional Asmnt/Malnutrition Patient General Information Nutritional Screening High Risk Consult Diagnosis UTI, altered metnal status, hypernatremia, coumadin Pertinent Medical Hx/Surgical Hx DM, CAD, HTN, dementia, muscle atrophy, weakness, funtional quadriplegic, chronic renal insuff, decubits ulcer stage 2 Subjective Information Pt seen sleeping in bed at time of visit, lunch tray not eaten on table. consult received for DM, wound. Current Diet Order/ Nutrition Support regular Pertinent Medications vit C, lipitor, Vit B12, colace, iron, lantus, humalog, theragran Pertinent Labs 10/02 Na 158, Cl 125, BUN 67, Cr 2.1, glucose 160, POC 136-184 Nutritional Hx/Data Height 1.55 m Height (Calculated Centimeters) 154.9 Current Weight (lbs) 75.296 kg Weight (Calculated Kilograms) 75.3 Weight (Calculated Grams) 16092.3 [place] Body Weight 105 Body Mass Index (BMI) 31.4 Weight Status Obese GI Symptoms GI Symptoms None Last BM 5/9 Difficult in: None Skin Integrity/Comment: redness, wound. angela 15 Estimated Nutritional Goals BEE in Kcals: Adj wt of IBW Calories/Kcals/Kg 25-30 Kcals Calculated [id number] Protein: Adj wt of IBW Protein g/k-1.2 Protein Calculated 55-66 Fluid: ml 1375-1650ml (1ml/kcal) Nutritional Problem 1. Problem Problem altered nutrition related labs Etiology hyperglycemia Signs/Symptoms: glucose 160-326, POC 136-184 Malnutrition Alert Is there a minimum of two criteria No selected? Query Text:Check all the applicable criteria. A minimum of two criteria are recommended for diagnosis of either severe or non-severe malnutrition. Malnutrition Related to Morbid Obesity Malnutrition related to morbid obesity No Intervention/Recommendation Comments 1. Recommend [facility] diet for glycemic control. Nurse Coyee notified. Consider to limit protein intake if PO intake > 75%. 2. Monitor PO intake, wt, labs and skin integrity 3. F/U as hgih risk in 2-3 days Expected Outcomes/Goals Expected Outcomes/Goals 1. PO intake to meet at least 75% of nutritional needs. 2. Wt stability, skin to remain intact, labs to approach WNL.
[2018-10-04] MEDS: Potassium Chloride 20 mEq ER Tab PO SCH (12:00)
[2018-10-04] MEDS: Therahoney Gel 42.5gm Tube TP SCH (12:00)
[2018-10-04] MEDS: cefTRIAXone 1 GM in Sodium Chloride 0.9% 50 ML IV SCH (20:16)
[2018-10-04] MEDS: Atorvastatin Calcium 10 MG TAB PO SCH (20:16)
[2018-10-05] MEDS: INSULIN LISPRO SLIDING SCALE 100 UNITS/ML UNIT SUBQ SCH ×3 (00:23→12:04)
[2018-10-05] MEDS: Albuterol/Ipratropium Neb 3 ML AERS HHN SCH ×3 (01:02→12:41)
[2018-10-05 05:26] LABS: % BASOPHILS 0.6 % (0.0-2.0); % EOSINOPHILS 4.5 % (0.0-5.0); % LYMPHOCYTES 31.3 % (20.0-50.0); % MONOCYTES 9.3 % (2.0-10.0); % NEUTROPHILS 54.3 % (40.0-80.0); BASOPHILE ABSOLUTE 0.1 Th/cumm (0-0.2); EOSINOPHILE ABSOLUTE 0.5 Th/cmm (0.1-0.4); HEMATOCRIT 39.4 % (41.0-60); LYMPHOCYTE ABSOLUTE 3.3 Th/cmm (1.5-3.0); MEAN CELL VOLUME 90.5 fl (81-100); MEAN CORPUSCULAR HEMOGLOBIN 29.9 pg (27.0-31.0); MEAN PLATELET VOLUME 11.5 fl; NEUTROPHILE ABSOLUTE 5.5 Th/cmm (1.8-8.0); PLATELET COUNT 113 Th/cmm (150-400); RED BLOOD COUNT 4.36 Mil/cmm (3.80-5.20); RED CELL DISTRIBUTION WIDTH 14.9 % (11.5-20.0); WHITE BLOOD COUNT 10.4 Th/cmm (4.8-10.8)
[2018-10-05 06:00] LABS: ALBUMIN 3.1 gm/dL (3.7-5.3); ALKALINE PHOSPHATASE 63 U/L (34-104); ANION GAP 12.3 (7.0-16.0); BILIRUBIN,TOTAL 0.6 mg/dL (0.3-1.0); BUN - UREA NITROGEN 27 mg/dL (7-25); CALCIUM SERUM 8.5 mg/dL (8.6-10.3); CARBON DIOXIDE 23.3 mEq/L (21.0-31.0); CHLORIDE 109 mEq/L (98-107); CREATININE - SERUM 1.4 mg/dL (0.6-1.2); GLUCOSE 188 mg/dL (70-105); POTASSIUM SERUM 3.6 mEq/L (3.5-5.1); SGOT 19 U/L (13-39); SGPT/ALT 43 U/L (7-52); SODIUM SERUM 141 mEq/L (136-145); TOTAL PROTEIN,SERUM 6.1 gm/dL (6.0-8.3)
[2018-10-05] MEDS: Insulin Glargine 100 units/ml 10ml Vial SUBQ SCH (08:30)
[2018-10-05] MEDS: Multivitamin Tab PO SCH (08:32)
[2018-10-05] MEDS: Potassium Chloride 20 mEq ER Tab PO SCH (08:32)
[2018-10-05] MEDS: Lactobacillus Rhamnosus GG 15 Billion CFU CAP.SPRINK PO SCH (08:33)
[2018-10-05] MEDS: Ferrous Sulfate 325 MG TAB PO SCH (08:33)
[2018-10-05] MEDS: Therahoney Gel 42.5gm Tube TP SCH (08:36)
--- NOTE | 2018-10-05 12:26 | Discharge Summary ---
General Discharge Summary - Discharge Summary Date of Admission: 10/01/18 Admitting Diagnosis: UTI, Elevated INF Discharge Date: 10/05/18 Discharge Diagnosis: UTI, elevated INR Laboratory Findings: Laboratory Results - last 24 hr 10/04/18 10/04/18 10/05/18 16:06 23:28 05:15 WBC 10.4 RBC 4.36 Hgb 13.0 Hct 39.4 L MCV 90.5 MCH 29.9 MCHC Differential 33.0 RDW 14.9 Plt Count 113 L MPV 11.5 Neutrophils % 54.3 Lymphocytes % 31.3 Monocytes % 9.3 Eosinophils % 4.5 Basophils % 0.6 Sodium Potassium Chloride Carbon Dioxide Anion Gap BUN Creatinine Est GFR ( Amer) Est GFR (Non-Af Amer) BUN/Creatinine Ratio Glucose POC Glucose 306 H 123 H Calcium Total Bilirubin AST ALT Alkaline Phosphatase Total Protein Albumin Globulin Albumin/Globulin Ratio 10/05/18 10/05/18 05:15 11:19 WBC RBC Hgb Hct MCV MCH MCHC Differential RDW Plt Count MPV Neutrophils % Lymphocytes % Monocytes % Eosinophils % Basophils % Sodium 141 Potassium 3.6 Chloride 109 H Carbon Dioxide 23.3 Anion Gap 12.3 BUN 27 H Creatinine 1.4 H Est GFR ( Amer) TNP Est GFR (Non-Af Amer) TNP BUN/Creatinine Ratio 19.3 Glucose 188 H POC Glucose 201 H Calcium 8.5 L Total Bilirubin 0.6 AST 19 ALT 43 Alkaline Phosphatase 63 Total Protein 6.1 Albumin 3.1 L Globulin 3.0 Albumin/Globulin Ratio 1.0 Hospital Course: Patient responded to treatment, WBC become normal INR came to target. Treatment: Patient was started in IV NS, IV AB, hold coumading and continue with SNF meds. Condition at Discharge: Stable Disposition: Discharge/Transfered to SNF Home Medications: Home Medication Medication Instructions Recorded Type Albuterol Sulfate [Proair 1 puff IH QID PRN 10/01/18 History Respiclick] Albuterol/Ipratropium Neb [Duoneb 3 ml HHN Q6HR 10/01/18 History Neb] Amino Acids/Protein Hydrolys 30 ml PO BID 10/01/18 History [Proteinex Liquid] Ascorbic Acid [Vitamin C] 500 mg PO DAILY 10/01/18 History Aspirin 81 mg PO DAILY 10/01/18 History Atorvastatin Calcium [Lipitor] 20 mg PO HS 10/01/18 History Cyanocobalamin [Vitamin B12] 1,000 mcg PO DAILY 10/01/18 History Docusate Sodium [Dulcolax Stool 100 mg PO BID 10/01/18 History Softener] Ferrous Sulfate [Feosol*] 1 tab PO BID 10/01/18 History Furosemide [Lasix] 20 mg PO DAILY 10/01/18 History Insulin Glargine [Lantus Insulin] 5 units SUBQ QAM 10/01/18 History Insulin Human Regular [NovoLIN R] See Protocol SUBQ ACHS 10/01/18 History Losartan Potassium 100 mg PO DAILY 10/01/18 History Memantine [Namenda] 5 mg PO DAILY 10/01/18 History Multivitamin [Multivitamins] 1 cap PO DAILY 10/01/18 History Warfarin Sodium [Coumadin*] 5 mg PO DAILY 10/01/18 History Warfarin Sodium [Coumadin*] 7 mg PO DAILY 10/01/18 History Inpatient Medications: Current Medications Albuterol/Ipratropium (Duoneb Neb) 3 ml HHN Q6HR [facility] Stop: 12/01/18 11:59 Last Admin: 10/05/18 07:03 Dose: 3 ml Ascorbic Acid (Vitamin C) 500 mg PO DAILY [facility] Stop: 12/01/18 08:59 Last Admin: 10/05/18 08:32 Dose: 500 mg Atorvastatin Calcium (Lipitor) 20 mg PO [facility] Stop: 12/01/18 20:59 Last Admin: 10/04/18 20:16 Dose: 20 mg Cyanocobalamin (Vitamin B12) 1,000 mcg PO DAILY [facility] Stop: 12/01/18 08:59 Last Admin: 10/05/18 08:32 Dose: 1,000 mcg Dextrose (D50w) 50 ml IVP PRN PRN PRN Reason: Blood Glucose less than 70 Stop: 12/01/18 09:10 Dextrose (Glutose 40%) 18.75 gm PO PRN PRN PRN Reason: Blood Glucose less than 70 Stop: 12/01/18 09:10 Docusate Sodium (Colace) 100 mg PO BID [facility] Stop: 12/01/18 08:59 Last Admin: 10/05/18 08:32 Dose: 100 mg Ferrous Sulfate (Iron) 325 mg PO BID [facility] Stop: 12/01/18 08:59 Last Admin: 10/05/18 08:33 Dose: 325 mg Glucagon (Glucagen) 1 mg IM PRN PRN PRN Reason: Blood Glucose less than 70 Stop: 12/01/18 09:10 Ceftriaxone Sodium 1 gm/ (Sodium Chloride) 50 mls @ 100 mls/hr IV Q24H [facility] Stop: 12/01/18 20:59 Last Admin: 10/04/18 20:16 Dose: 100 mls/hr Dextrose (D5w) 1,000 mls @ 70 mls/hr IV .[id number] [facility] Stop: 11/30/18 23:58 Last Admin: 10/02/18 15:42 Dose: 70 mls/hr Insulin Glargine (Lantus Insulin) 5 units SUBQ QAM [facility] Stop: 12/01/18 08:59 Last Admin: 10/05/18 08:30 Dose: 5 units Insulin Human Lispro (Humalog Insulin Sliding Scale) 0 units SUBQ Q6HR [facility]; Protocol Stop: 12/01/18 11:59 Last Admin: 10/05/18 12:04 Dose: 5 units Lactobacillus Rhamnosus (Culturelle 15b) 1 each PO DAILY [facility] Stop: 12/03/18 08:59 Last Admin: 10/05/18 08:33 Dose: 1 each Memantine (Namenda) 5 mg PO DAILY [facility] Stop: 12/01/18 08:59 Last Admin: 10/05/18 08:32 Dose: 5 mg Miscellaneous (Probiotic Screen) 1 ea MC PRN PRN PRN Reason: PROTOCOL Stop: 12/02/18 16:33 Multivitamins/Vitamin C (Theragran) 1 tab PO DAILY [facility] Stop: 12/02/18 08:59 Last Admin: 10/05/18 08:32 Dose: 1 tab Potassium Chloride (Klor-Con) 20 meq PO DAILY [facility] Stop: 12/03/18 09:59 Last Admin: 10/05/18 08:32 Dose: 20 meq Warfarin Sodium (Coumadin) 3 mg PO C [facility]; Protocol Stop: 12/03/18 12:59 Last Admin: 10/05/18 12:16 Dose: 3 mg Wound Care/Dressing Products (Therahoney) 1 appl TP DAILY [facility] Stop: 12/03/18 08:59 Last Admin: 10/05/18 08:36 Dose: 1 appl Activity: Bed Rest Discharge Diet: 2 Gram Sodium Consults and Follow-Up: Baldemar Mcelroy [Primary Care Provider] - Consulting Speciality: Other (PCP)
== END 2018-10-05 15:10 | DRG 682 ==
LOC: ER 21:22 → MSI 10-02 00:05
PROVIDERS: ADMIT General Practice; ATTEND General Practice
DX: N17.9 Acute kidney failure, unspecified (principal); R53.2 Functional quadriplegia; E87.0 Hyperosmolality and hypernatremia; N39.0 Urinary tract infection, site not specified; E11.22 Type 2 diabetes mellitus with diabetic chronic kidney disease; F03.90 Unspecified dementia, unspecified severity, without behavioral disturbance, psychotic disturbance, mood disturbance, and anxiety; J44.9 Chronic obstructive pulmonary disease, unspecified; I25.10 Atherosclerotic heart disease of native coronary artery without angina pectoris; N18.9 Chronic kidney disease, unspecified; I12.9 Hypertensive chronic kidney disease with stage 1 through stage 4 chronic kidney disease, or unspecified chronic kidney disease; Z79.4 Long term (current) use of insulin; Z86.73 Personal history of transient ischemic attack (TIA), and cerebral infarction without residual deficits
CPT/HCPCS: 36415-UA; 70450-TC; 71045-TC; 80053-TC; 81001-TC; 82948-90; 83036-90; 84443-TC; 85025-TC; 85610-TC; 85730-TC; 87086-90; 93005; 94640; 94760; J0696; J1815; J3430; J7070; Z7610